=== PATIENT | female | born 1950 | race Caucasian/White ===

== ENCOUNTER 2018-12-24 16:39 | Observation (INO) ==
--- NOTE | 2018-12-24 18:02 | CT ---
EXAM DATE: 12/24/2018 6:00 PM EST AGE/SEX: 68 years / Female INDICATIONS: Cephalgia and altered mental status. CLINICAL DATA: This is the patient's initial encounter. Patient reports that signs and symptoms have been present for 1 week and indicates a pain score of 5/10. MEDICAL/SURGICAL HISTORY: Hypertension. Congestive heart failure. Rheumatoid arthritis. Neuropat hy. Coronary artery stent. Tonsillectomy. Heart cath. RADIATION DOSE: 34.69 CTDI (mGy) COMPARISON: No prior exams available for comparison. TECHNIQUE: CT of the head without contrast. Using automated exposure control and adjustment of the mA and/or kV according to patient size, radiation dose was kept as low as reasonably achievable to ob tain optimal diagnostic quality images. DICOM format image data is available electronically for revi ew and comparison. FINDINGS: Cerebrum: The ventricles are normal for age. No evidence of midline shift, mass lesion, hemorrhage or acute infarction. No extraaxial fluid collections are seen. Posterior Fossa: The cerebellum and brainstem are intact. The 4th ventricle is midline. The cerebe llopontine angle is unremarkable. Extracranial: The visualized portion of the orbits is intact. Skull: The calvaria is intact. No evidence of skull fracture. CONCLUSION: 1. No acute intracranial abnormality. . . Electronically signed by: Adi Linton MD Board Certified Radiologist 12/24/2018 6:00 PM EST
[2018-12-24 18:04] LABS: Baso # (Auto) 0.1 th/mm3 (0.0-0.2); Baso % (Auto) 1.4 % (0.0-2.0); Eos # (Auto) 0.1 th/mm3 (0.0-0.4); Eos % (Auto) 2.3 % (0.0-4.0); Hematocrit 38.2 % (35.0-46.0); Hemoglobin 12.8 gm/dL (11.6-15.3); Lymph # (Auto) 1.3 th/mm3 (1.0-4.8); Lymph % (Auto) 20.6 % (9.0-44.0); Mean Corpuscular HGB Conc 33.5 % (32.0-36.0); Mean Corpuscular Hemoglobin 31.5 pg (27.0-34.0); Mono # (Auto) 0.7 th/mm3 (0.0-0.9); Mono % (Auto) 10.9 % (0.0-8.0); Neut % (Auto) 64.8 % (16.0-70.0); Platelet Count 228 th/mm3 (150-450); Red Blood Count 4.06 mil/mm3 (4.00-5.30); Red Cell Distribution Width 15.1 % (11.6-17.2); White Blood Count 6.2 th/mm3 (4.0-11.0)
--- NOTE | 2018-12-24 18:21 | ED ---
HPI General Chief complaint: Headache Stated complaint: shortness of breath Time Seen by Provider: 12/24/18 17:39 Source: patient Mode of arrival: ambulatory Limitations: no limitations History of Present Illness HPI narrative: 68 y/o female presents with shortness of breath and chest pressure over the past couple weeks. She states that her sister told her she was having issues with her memory intermittently but she had not noticed it. She states she has history of heart attack and with that she had an atypical presentation where she was vomiting more. She states she has a heart stent. She states she is not having any current chest pain or other concurrent complaints. Onset (ago): week(s) Location: chest Radiation: non-radiation Pain Consistency: intermittent Relieving factors: none Exacerbating factors: movement Associated symptoms: Reports denies other symptoms Related Data Home Medications Medication Instructions Recorded Confirmed Detrol LA 12/24/18 Lasix 12/24/18 Os-Maldonado 500 + D3 12/24/18 folic acid 12/24/18 gabapentin 12/24/18 methotrexate PO WEEKLY 12/24/18 metoprolol tartrate DAILY 12/24/18 potassium 12/24/18 Allergies Allergy/AdvReac Type Severity Reaction Status Date / Time propoxyphene Allergy Nausea/Vomi Verified 12/24/18 16:50 [From Elizabeth-Oneyda] torsten Review of Systems ROS: all other systems reviewed are negative [facility] Medical History Medical History CHF (congestive heart failure) (Acute) Hyperlipidemia (Acute) Hypertension (Acute) Neuropathy (Acute) Rheumatoid arthritis (Acute) Surgical History Surgical History History of cardiac catheterization (Acute) History of heart artery stent (Acute) Hx of cataract surgery (Acute) Hx of tonsillectomy (Acute) Social History Social History Substance History: No History of Abuse Smoking Status: Never smoker How Often Do You Have a Drink Containing Alcohol: Never Recent Travel in [facility] within the Last 8 Weeks: No Recent Out of Country Travel within the Last 8 Weeks: No Immunization History Tetanus Immunization: <5 Years Exam Narrative Exam Narrative: GENERAL: 68 y/o female in no apparent distress SKIN: Focused skin assessment warm/dry. HEAD: Atraumatic. Normocephalic. EYES: Pupils equal and round. No scleral icterus. No injection or drainage. ENT: No nasal bleeding or discharge. Mucous membranes pink and moist. NECK: Trachea midline. No JVD. CARDIOVASCULAR: Regular rate and rhythm. No murmur appreciated. RESPIRATORY: No accessory muscle use. Clear to auscultation. Breath sounds equal bilaterally at apices. GASTROINTESTINAL: Abdomen soft, non-tender, nondistended. MUSCULOSKELETAL: No obvious deformities. No clubbing. No cyanosis. NEUROLOGICAL: Awake and alert. Motor grossly within normal limits. Normal speech. Course Initial Documented Vital Signs Temperature 98.3 F 12/24/18 16:42 Pulse Rate 95 H 12/24/18 16:42 Respiratory Rate 20 12/24/18 16:42 Blood Pressure 165/77 H 12/24/18 16:42 Pulse Oximetry 96 12/24/18 16:42 Last Documented Vital Signs Temperature 98.3 F 12/24/18 16:42 Pulse Rate 80 12/24/18 21:43 Respiratory Rate 18 12/24/18 21:43 Blood Pressure 152/65 H 12/24/18 21:43 Pulse Oximetry 95 12/24/18 21:43 Sign Out Sign Out Data: Patient Sign Out occurred on 12/24/18 at 19:01. Patient's care was discussed, and care was transferred from Vy Aguero MD to Kaylan De Leon DO. Sign Out Comment: please follow ua and admit Last updated by Vy Aguero MD at 12/24/18 18:51 Clinical Decision Support HEART Score Questions History: Moderately suspicious EKG: Non-specific repolarization disturbance Age: 65 years+ Risk Factors: 3 or more Risk Factors or Hx of Atherosclerotic Disease Initial Troponin: Normal Limit Heart Score HEART Score: 6 6 Medical Decision Making [facility] Narrative Medical decision making narrative: will check labs, imaging, ua and reeval Medical Screen Exam Complete: Yes Emergency Medical Condition: Yes Differential Diagnosis Differential Diagnosis: chf, renal failure, anemia, pneumonia, electrolyte deficiency, uti.... Lab Data Result diagrams: 12/24/18 17:40 12/24/18 17:40 Lab Results 12/24/18 12/24/18 12/24/18 Range/Units 17:40 17:40 17:40 WBC 6.2 (4.0-11.0) th/mm3 RBC 4.06 (4.00-5.30) mil/mm3 Hgb 12.8 (11.6-15.3) gm/dL Hct 38.2 (35.0-46.0) % MCV 94.0 (80.0-100.0) fL MCH 31.5 (27.0-34.0) pg MCHC 33.5 (32.0-36.0) % RDW 15.1 (11.6-17.2) % Plt Count 228 (150-450) th/mm3 MPV 10.0 (7.0-11.0) fL Neut % (Auto) 64.8 (16.0-70.0) % Lymph % (Auto) 20.6 (9.0-44.0) % [place] % (Auto) 10.9 H (0.0-8.0) % Eos % (Auto) 2.3 (0.0-4.0) % Baso % (Auto) 1.4 (0.0-2.0) % Neut # (Auto) 4.0 (1.8-7.7) th/mm3 Lymph # (Auto) 1.3 (1.0-4.8) th/mm3 [place] # (Auto) 0.7 (0.0-0.9) th/mm3 Eos # (Auto) 0.1 (0.0-0.4) th/mm3 Baso # (Auto) 0.1 (0.0-0.2) th/mm3 WBC Differential . Differential Comment Auto diff final Sodium 139 (136-145) meq/L Potassium 4.3 (3.5-5.1) meq/L Chloride 106 (98-107) meq/L Carbon Dioxide 26.6 (21.0-32.0) meq/L Anion Gap 6 (5-15) meq/L BUN 14 (7-18) mg/dL Creatinine 1.20 H (0.50-1.00) mg/dL Estimated GFR 45 L (>89) mL/min Random Glucose 95 (74-106) mg/dL Calcium 8.6 (8.5-10.1) mg/dL Magnesium 2.3 (1.5-2.5) mg/dL Total Bilirubin 0.3 (0.2-1.0) mg/dL AST 25 (15-37) U/L ALT 33 (10-53) U/L Alkaline Phosphatase 100 (45-117) U/L Total Creatine Kinase (26-192) U/L Troponin I Less than 0.02 L (0.02-0.05) ng/mL B-Natriuretic Peptide 181 H (0-100) pg/mL Total Protein 7.8 (6.4-8.2) g/dL Albumin 3.2 L (3.4-5.0) g/dL Urine Color (Yellw/Straw) Urine Clarity (Clear) Urine pH (5.0-8.5) Ur Specific [place] (1.002-1.035) Urine Protein (Neg-Trace) mg/dL Urine Glucose (UA) (Negative) mg/dL Urine Ketones (Negative) mg/dL Urine Occult Blood (Negative) Urine Nitrate (Negative) Urine Bilirubin (Negative) Urine Urobilinogen (Less than 2) mg/dL Ur Leukocyte Esterase (Negative) Urine RBC (0-3) /hpf Urine WBC (0-5) /hpf Ur Squamous Epith Cells (0-5) /hpf Urine Mucus (Occasional) /lpf Micro UA Comment Ur Microscopic Review Urine Culture Comments Serum Alcohol Less than 3 (0-5) mg/dL 12/24/18 12/24/18 12/24/18 Range/Units 17:40 20:30 20:56 WBC (4.0-11.0) th/mm3 RBC (4.00-5.30) mil/mm3 Hgb (11.6-15.3) gm/dL Hct (35.0-46.0) % MCV (80.0-100.0) fL MCH (27.0-34.0) pg MCHC (32.0-36.0) % RDW (11.6-17.2) % Plt Count (150-450) th/mm3 MPV (7.0-11.0) fL Neut % (Auto) (16.0-70.0) % Lymph % (Auto) (9.0-44.0) % [place] % (Auto) (0.0-8.0) % Eos % (Auto) (0.0-4.0) % Baso % (Auto) (0.0-2.0) % Neut # (Auto) (1.8-7.7) th/mm3 Lymph # (Auto) (1.0-4.8) th/mm3 [place] # (Auto) (0.0-0.9) th/mm3 Eos # (Auto) (0.0-0.4) th/mm3 Baso # (Auto) (0.0-0.2) th/mm3 WBC Differential Differential Comment Sodium (136-145) meq/L Potassium (3.5-5.1) meq/L Chloride (98-107) meq/L Carbon Dioxide (21.0-32.0) meq/L Anion Gap (5-15) meq/L BUN (7-18) mg/dL Creatinine (0.50-1.00) mg/dL Estimated GFR (>89) mL/min Random Glucose (74-106) mg/dL Calcium (8.5-10.1) mg/dL Magnesium (1.5-2.5) mg/dL Total Bilirubin (0.2-1.0) mg/dL AST (15-37) U/L ALT (10-53) U/L Alkaline Phosphatase (45-117) U/L Total Creatine Kinase 115 88 (26-192) U/L Troponin I Less than 0.02 L (0.02-0.05) ng/mL B-Natriuretic Peptide (0-100) pg/mL Total Protein (6.4-8.2) g/dL Albumin (3.4-5.0) g/dL Urine Color Yellow (Yellw/Straw) Urine Clarity Clear (Clear) Urine pH 6.0 (5.0-8.5) Ur Specific [place] 1.014 (1.002-1.035) Urine Protein Negative (Neg-Trace) mg/dL Urine Glucose (UA) Negative (Negative) mg/dL Urine Ketones Negative (Negative) mg/dL Urine Occult Blood Negative (Negative) Urine Nitrate Negative (Negative) Urine Bilirubin Negative (Negative) Urine Urobilinogen Less than 2 (Less than 2) mg/dL Ur Leukocyte Esterase Negative (Negative) Urine RBC Less than 1 (0-3) /hpf Urine WBC 1 (0-5) /hpf Ur Squamous Epith Cells <1 (0-5) /hpf Urine Mucus Few H (Occasional) /lpf Micro UA Comment Culture not ind Ur Microscopic Review Not Reportable Urine Culture Comments Culture not ind Serum Alcohol (0-5) mg/dL Imaging Data Radiologist's impression: Chest X-Ray 12/24/18 17:39 CONCLUSION: The lungs are clear. Head CT 12/24/18 17:39 CONCLUSION: 1. No acute intracranial abnormality. . . Discharge Plan Discharge Disposition Patient Disposition: Sign Out(ED Internal Use Only) Discharge Order Discharge Orders: ED Use Only Admit Order (Routine); Ordered 12/24/18 Ordered By: Kaylan De Leon Physicians Team ED Provider: Kaylan De Leon Primary Care Provider: UNKNOWN, Rxs /Orders / Referrals /Forms Prescriptions: No Action Detrol LA RF: 0 Lasix RF: 0 Os-Maldonado 500 + D3 RF: 0 folic acid RF: 0 gabapentin RF: 0 methotrexate PO WEEKLY RF: 0 metoprolol tartrate DAILY RF: 0 potassium RF: 0 Discharge Interventions Interventions: Vital Signs Last Done: 12/24/18 17:02 Status ED Status: Admitted Observation Patient
--- NOTE | 2018-12-24 18:25 | XR ---
EXAM DATE: 12/24/2018 6:14 PM EST AGE/SEX: 68 years / Female INDICATIONS: Short of breath CLINICAL DATA: This is the patient's initial encounter. Patient reports that signs and symptoms have been present for 1 day and indicates a pain score of 0/10. MEDICAL/SURGICAL HISTORY: Myocardial infarction. Coronary artery stent. COMPARISON: No prior exams available for comparison. FINDINGS: A single AP view of the chest demonstrates the lungs to be symmetrically aerated without evidence of mass, infiltrate or effusion. The cardiomediastinal contours are unremarkable. Osseous structures a re intact. CONCLUSION: The lungs are clear. Electronically signed by: Christiano Olson MD Board Certified Radiologist 12/24/2018 6:24 PM EST
[2018-12-24 18:33] LABS: Alanine Aminotransferase 33 U/L (10-53); Albumin 3.2 g/dL (3.4-5.0); Anion Gap 6 meq/L (5-15); Aspartate Aminotransferase 25 U/L (15-37); Blood Urea Nitrogen 14 mg/dL (7-18); Calcium 8.6 mg/dL (8.5-10.1); Carbon Dioxide 26.6 meq/L (21.0-32.0); Chloride 106 meq/L (98-107); Glomerular Filtration Rate 45 mL/min (>89); Glucose,Random 95 mg/dL (74-106); Magnesium 2.3 mg/dL (1.5-2.5); Potassium 4.3 meq/L (3.5-5.1); Sodium 139 meq/L (136-145)
[2018-12-24 18:38] LABS: Alkaline Phosphatase 100 U/L (45-117); Total Protein 7.8 g/dL (6.4-8.2)
[2018-12-24] MEDS ORDERED: Aspirin 325 MG Tablet PO ONE (18:41)
[2018-12-24] MEDS ORDERED: Acetaminophen 500 MG Tablet PO PRN (20:11)
[2018-12-24] MEDS ORDERED: Labetalol HCl Inj 100 MG/20 ML Vial IV.PUSH ONE (20:11)
[2018-12-24] MEDS ORDERED: Labetalol HCl Inj 20 MG/4 ML Vial IV.PUSH ONE (21:15)
--- NOTE | 2018-12-24 21:33 | ECG ---
Date Performed: 12/24/2018 Time Performed: 20:58:02 PTAGE: 68 years EKG: Sinus rhythm POSSIBLE RIGHT VENTRICULAR CONDUCTION DELAY POSSIBLE INFERIOR MYOCARDIAL INFARCTION BORDERLINE ECG NO PREVIOUS TRACING DOCTOR: Pardeep Swann Interpretating Date/Time 12/24/2018 21:32:12
[2018-12-24 21:47] LABS: Bilirubin,Urine Negative (Negative); Clarity,Urine Clear (Clear); Color,Urine Yellow (Yellw/Straw); Glucose,Urine (UA) Negative (Negative); Leukocyte Esterase,Urine Negative (Negative); Mucus,Urine Few /lpf (Occasional); Nitrite,Urine Negative (Negative); Specific Gravity,Urine 1.014 (1.002-1.035); Squamous Epithelial Cell,Urine <1 /hpf (0-5)
[2018-12-24 22:23] LABS: Creatine Kinase 88 U/L (26-192)
[2018-12-25 07:43] VITALS: BP 112/55; RESP 18; TEMP 98.6; O2SAT 96
[2018-12-25] MEDS ORDERED: Regadenoson Inj 0.4 MG/5 ML Syringe IV.PUSH ONE (08:16)
--- NOTE | 2018-12-25 08:20 | P.HPCA ---
History of Present Illness Primary Care Physician: UNKNOWN Chief Complaint: Chest pain History of Present Illness: This is a 68-year-old female history of CAD with stent in 2013, hypertension, hyperlipidemia, rheumatoid arthritis, neuropathy, and GERD presents to ED planes of headache chest pain shortness of breath. States that when she had an OH in 2013 her symptoms were headache and being tired. Concerned her stating that she was having a headache and shortness of breath of her first and was having chest discomfort that was not going away. Chest discomfort has been present for 4 days constantly. He was in the left upper chest. Was an 8 out of 10 at its worse level. Found nothing to worsen or improve it. Denied nausea or diaphoresis with the symptoms. Planes of a frontal headache that feels as if "like someone hit me in the head with a bat." That has been constant for 3 days. Denies any visual changes. Denies phonophobia. Denies numbness tingling weakness in extremities. Denies seizure activity or head injury. Shortness of breath has been intermittent for the past week. States is been going on with light activity at home which for the most part was light house chores. Denies coughing or wheezing. Denies recent illness. States her last cardiac evaluation was a couple years ago. She lives in [facility] for about 4 months and goes back to [place]. She has a local PCP and provided area. States the chest discomfort resolved on its own last evening while lying in the bed and the chest pain center. She no longer has a headache. Past medical history: Stated history of CAD with stent in 2013. Hypertension and hyperlipidemia. She also history of rheumatoid arthritis and states that because of neuropathy. Also history of GERD. Denies diabetes. Family history: Her brother had a CAD. Social history: She quit smoking 8 years ago prior to that she smoked about 1 pack daily for 25 years. - Diagnosis (1) Chest pain (2) CAD (coronary artery disease) (3) History of heart artery stent (4) Hypertension (5) Hyperlipidemia (6) Rheumatoid arthritis Review of Systems General: Patient denies fevers, chills, and recent travel. HEENT: Planes of frontal headache. Patient denies sore throat, difficulty swallowing. Cardiovascular: Has the chest discomfort as mentioned above. Denies sensation of heart beating rapidly or irregularly. No syncope. Denies diaphoresis. Respiratory: Planes of shortness of breath with light activity which her was light house chores. Denies inspirational chest discomfort. Denies coughing wheezing or hemoptysis. GI: Patient denies nausea, vomiting, diarrhea, abdominal pain, bloody stools. Musculoskeletal: Chronic joint pains. Patient denies joint edema. Denies calf pain or edema. Neurovascular: Patient denies numbness, tingling, weakness joint pain extremities. Denies headache. Endocrine: Denies polyuria and polydipsia. Hematologic: Denies easy bruising. Skin: Denies rash or itching. PMFSH - History History Provided By: Patient - Medical History Medical History: Medical History (Last Reviewed 12/24/18 @ 18:20 by Vy Aguero MD) CHF (congestive heart failure) Hyperlipidemia Hypertension Neuropathy Rheumatoid arthritis - Surgical History Surgical History: Surgical History (Last Reviewed 12/24/18 @ 18:20 by Vy Aguero MD) History of cardiac catheterization History of heart artery stent Hx of cataract surgery Hx of tonsillectomy - Tobacco History Second Hand Smoke Exposure: No Tobacco Use In Past 30 Days: No Smoking Status: Former smoker Tobacco Type: Cigarettes - Alcohol History How Often Do You Have a Drink Containing Alcohol: Never - Substance Use History Substance History: No History of Abuse - Travel History Recent Travel in the [place] Within the Last 8 Weeks: No Recent Travel Out of the Country Within the Last 8 Weeks: No - Immunization History Tetanus Immunization: <5 Years Medications and Allergies Active Medications: Active Medications Acetaminophen (Tylenol) 500 mg PO Q4H PRN PRN Reason: HEADACHE Aspirin (Aspirin) 325 mg PO DAILY [facility] Nitroglycerin (Nitrostat Sl) 0.4 mg SL Q5M PRN PRN Reason: CHEST PAIN Ondansetron HCl (Zofran Inj) 4 mg IV.PUSH Q6H PRN PRN Reason: NAUSEA Sodium Chloride (Ns Flush) 2 ml IV.FLUSH PRN PRN PRN Reason: FLUSH AFTER USING IV ACCESS Sodium Chloride (Ns Flush) 2 ml IV.FLUSH BID VISHAL Last Admin: 12/24/18 23:03 Dose: Not Given Sodium Chloride (Ns Flush) 2 ml IV.FLUSH PRN PRN PRN Reason: FLUSH AFTER USING IV ACCESS Allergies Allergy/AdvReac Type Severity Reaction Status Date / Time propoxyphene Allergy Nausea/Vomi Verified 12/24/18 16:50 [From Elizabeth-N] ting Home Medications Medication Instructions Recorded Confirmed Type Detrol LA 12/24/18 History Lasix 12/24/18 History Os-Maldonado 500 + D3 12/24/18 History folic acid 12/24/18 History gabapentin 12/24/18 History methotrexate PO WEEKLY 12/24/18 History metoprolol tartrate DAILY 12/24/18 History potassium 12/24/18 History Exam Vital signs: Vital Signs 12/24/18 16:42 12/24/18 17:02 12/24/18 21:43 Temperature 98.3 F Pulse Rate 95 H 89 80 Respiratory Rate 20 27 H 18 Blood Pressure 165/77 H 169/78 H 152/65 H Pulse Oximetry 96 96 95 12/25/18 00:21 12/25/18 04:00 12/25/18 07:41 Temperature 97.8 F 98.1 F 98.6 F Pulse Rate 87 80 79 Respiratory Rate 16 18 Blood Pressure 122/60 122/59 L 112/55 L Pulse Oximetry 96 94 L 96 Intake & Output 12/24/18 12/25/18 12/25/18 18:59 06:59 18:59 Intake Total 500 / 500 Balance 500 / 500 Weight 99.79 kg 99.79 kg Intake: Oral 500 / 500 Other: Date of Last Bowel Movement 12/24/18 Weight On Admission 99.79 kg Narrative: GENERAL: This is a well-nourished, well-developed patient, in no apparent distress. Patient speaks in clear complete sentences. Patient is pleasant. HEENT: Head is atraumatic and normocephalic. Neck is supple without lymphadenopathy and trachea is midline. No JVD or carotid bruits. CARDIOVASCULAR: Regular rate and rhythm without murmurs, gallops, or rubs. RESPIRATORY: Left upper chest wall is tender and she states that is the same area and same type of discomfort that she was having. Clear to auscultation. Breath sounds equal bilaterally. No wheezes, rales, or rhonchi. No use of accessory muscles. GASTROINTESTINAL: Abdomen is nontender, nondistended. Abdomen soft. No obvious pulsatile mass or bruit. No CVA tenderness. Strong femoral pulses bilaterally. Normal bowel sounds in all quadrants. MUSCULOSKELETAL: There are deformities to her toes bilaterally from rheumatoid arthritis. Patient is moving upper and lower extremities freely. No calf tenderness or edema, no Homans sign. Strong pulses in upper and lower extremities. NEUROLOGICAL: Patient is alert and oriented. Cranial nerves 2-12 are grossly intact. No focal deficits and speech is clear. SKIN: No rash and turgor is normal. Results 12/24/18 17:40 12/24/18 17:40 Cardiac Enzymes 12/24/18 12/24/18 12/24/18 Range/Units 17:40 17:40 20:56 AST 25 (15-37) U/L Troponin I Less than 0.02 L Less than 0.02 L (0.02-0.05) ng/mL B-Natriuretic Peptide 181 H (0-100) pg/mL 12/25/18 Range/Units 00:15 AST (15-37) U/L Troponin I Less than 0.02 L (0.02-0.05) ng/mL B-Natriuretic Peptide (0-100) pg/mL Coagulation 12/24/18 Range/Units 17:40 B-Natriuretic Peptide 181 H (0-100) pg/mL CBC 12/24/18 Range/Units 17:40 WBC 6.2 (4.0-11.0) th/mm3 RBC 4.06 (4.00-5.30) mil/mm3 Hgb 12.8 (11.6-15.3) gm/dL Hct 38.2 (35.0-46.0) % Plt Count 228 (150-450) th/mm3 Neut # (Auto) 4.0 (1.8-7.7) th/mm3 Lymph # (Auto) 1.3 (1.0-4.8) th/mm3 [place] # (Auto) 0.7 (0.0-0.9) th/mm3 Eos # (Auto) 0.1 (0.0-0.4) th/mm3 Baso # (Auto) 0.1 (0.0-0.2) th/mm3 Comprehensive Metabolic Panel 12/24/18 Range/Units 17:40 Sodium 139 (136-145) meq/L Potassium 4.3 (3.5-5.1) meq/L Chloride 106 (98-107) meq/L Carbon Dioxide 26.6 (21.0-32.0) meq/L BUN 14 (7-18) mg/dL Creatinine 1.20 H (0.50-1.00) mg/dL Calcium 8.6 (8.5-10.1) mg/dL AST 25 (15-37) U/L ALT 33 (10-53) U/L Alkaline Phosphatase 100 (45-117) U/L Total Protein 7.8 (6.4-8.2) g/dL Albumin 3.2 L (3.4-5.0) g/dL Intake and Output 12/24/18 12/25/18 12/25/18 22:59 06:59 14:59 Intake Total 500 / 500 Balance 500 / 500 Intake: Oral 500 / 500 Other: Date of Last Bowel Movement 12/24/18 Weight 99.79 kg 99.79 kg Weight On Admission 99.79 kg - Imaging and Cardiology Imaging: Impressions Chest X-Ray 12/24/18 17:39 CONCLUSION: The lungs are clear. Head CT 12/24/18 17:39 CONCLUSION: 1. No acute intracranial abnormality. . . EKG interpretations - EKG EKG shows: sinus rhythm (Sinus rhythm without significant ST segment depressions or elevations.) Caprini VTE Risk Assessment Caprini VTE Risk Assessment: Moderate/High Risk (score >= 2) Caprini Risk Assessment Model: Point Value = 1 Point Value = 2 Point Value = 3 Point Value = 5 Age 41-60 Minor surgery BMI > 25 kg/m2 Swollen legs Varicose veins or History of unexplained or recurrent spontaneous Oral contraceptives or hormone replacement Sepsis (< 1 month) Serious lung disease, including pneumonia (< 1 month) Abnormal pulmonary function Acute myocardial infarction Congestive heart failure (< 1 month) History of inflammatory bowel disease Medical patient at bed rest Age 61-74 Arthroscopic surgery Major open surgery (> 45 min) Laparoscopic surgery (> 45 min) Malignancy Confined to bed (> 72 hours) Immobilizing plaster cast Central venous access Age >= 75 History of VTE Family history of VTE Factor V Leiden Prothrombin [id number] Lupus anticoagulant Anticardiolipin antibodies Elevated serum homocysteine Heparin-induced thrombocytopenia Other congenital or acquired thrombophilia Stroke (< 1 month) Elective arthroplasty Hip, pelvis, or leg fracture Acute spinal cord injury (< 1 month) Prophylaxis Regimen: Total Risk Factor Score Risk Level Prophylaxis Regimen 0-1 Low Early ambulation 2 Moderate Order ONE of the following: *Sequential Compression Device (SCD) *Heparin 5000 units SQ BID 3-4 Higher Order ONE of the following medications: *Heparin 5000 units SQ TID *Enoxaparin/Lovenox 40 mg SQ daily (WT < 150 kg, CrCl > 30 mL/min) *Enoxaparin/Lovenox 30 mg SQ daily (WT < 150 kg, CrCl > 10-29 mL/min) *Enoxaparin/Lovenox 30 mg SQ BID (WT < 150 kg, CrCl > 30 mL/min) AND/OR *Sequential Compression Device (SCD) 5 or more Highest Order ONE of the following medications: *Heparin 5000 units SQ TID (Preferred with Epidurals) *Enoxaparin/Lovenox 40 mg SQ daily (WT < 150 kg, CrCl > 30 mL/min) *Enoxaparin/Lovenox 30 mg SQ daily (WT < 150 kg, CrCl > 10-29 mL/min) *Enoxaparin/Lovenox 30 mg SQ BID (WT < 150 kg, CrCl > 30 mL/min) AND *Sequential Compression Device (SCD) Assessment and Plan - Assessment (1) Chest pain Code(s): R07.9 - Chest pain, unspecified Status: Acute (2) CAD (coronary artery disease) Code(s): I25.10 - Atherosclerotic heart disease of [place] coronary artery without angina pectoris Status: Acute (3) History of heart artery stent Code(s): Z95.5 - Presence of coronary angioplasty implant and graft Status: Acute (4) Hypertension Code(s): I10 - Essential (primary) hypertension Status: Acute (5) Hyperlipidemia Code(s): E78.5 - Hyperlipidemia, unspecified Status: Acute (6) Rheumatoid arthritis Code(s): M06.9 - Rheumatoid arthritis, unspecified Status: Acute - Plan * Chest pain: Patient has had serial cardiac enzymes and EKGs for ruling out purposes and has also been seen by Dr. Mckinnon of cardiology and chest pain center. She will undergo a Lexiscan and would be discharged home if her stress test is nonischemic with instructions to follow-up with PCP. Return to ED for interval issues. * CAD: Patient has history of cardiac stent. CAD will be reassessed with stress test. She will need follow-up with cardiology. * Hypertension: Continue current medication. * Hyperlipidemia: Continue current medication. * Rheumatoid arthritis: Continue medication. Patient is stable at this time. She is agreeable to this plan. H&P: Quality - VTE Deep Vein Thrombosis/Pulmonary Embolism Present on Admission: No
--- NOTE | 2018-12-25 08:23 | P.PNCA ---
Subjective Interval history: This pleasant lady was seen in concert with the physician bread distributor, history and physical exam were obtained together. She has a very atypical history of presenting in 2012 with protracted vomiting and headache which was eventually diagnosed as an acute heart attack leading to a catheterization and stent placement. She has had no significant problems since but has not followed up with a wound specialist. She is a winter vacation here from [place] with no established follow-up. She currently presents with a headache and some mild shortness of breath but because of her previous issues she became anxious and concerned that she might be having a heart attack again and presented to the emergency room. History and physical was as documented by the physician bread distributor. Her current presentation is certainly not suggestive of an acute injury and her enzymes x3 are negative with unremarkable EKG for any changes. She does have mild elevation of her d-dimer. She is currently comfortable and desirous of returning to home. Medications and Allergies Active Medications: Active Medications Acetaminophen (Tylenol) 500 mg PO Q4H PRN PRN Reason: HEADACHE Aspirin (Aspirin) 325 mg PO DAILY VISHAL Nitroglycerin (Nitrostat Sl) 0.4 mg SL Q5M PRN PRN Reason: CHEST PAIN Ondansetron HCl (Zofran Inj) 4 mg IV.PUSH Q6H PRN PRN Reason: NAUSEA Sodium Chloride (Ns Flush) 2 ml IV.FLUSH PRN PRN PRN Reason: FLUSH AFTER USING IV ACCESS Sodium Chloride (Ns Flush) 2 ml IV.FLUSH BID [facility] Last Admin: 12/24/18 23:03 Dose: Not Given Sodium Chloride (Ns Flush) 2 ml IV.FLUSH PRN PRN PRN Reason: FLUSH AFTER USING IV ACCESS Allergies Allergy/AdvReac Type Severity Reaction Status Date / Time propoxyphene Allergy Nausea/Vomi Verified 12/24/18 16:50 [From [facility]] ting Home Medications Medication Instructions Recorded Confirmed Type Detrol LA 12/24/18 History Lasix 12/24/18 History Os-[place] 500 + D3 12/24/18 History folic acid 12/24/18 History gabapentin 12/24/18 History methotrexate PO WEEKLY 12/24/18 History metoprolol tartrate DAILY 12/24/18 History potassium 12/24/18 History Physical Exam Vital signs: Vital Signs 12/24/18 16:42 12/24/18 17:02 12/24/18 21:43 Temperature 98.3 F Pulse Rate 95 H 89 80 Respiratory Rate 20 27 H 18 Blood Pressure 165/77 H 169/78 H 152/65 H Pulse Oximetry 96 96 95 12/25/18 00:21 12/25/18 04:00 12/25/18 07:41 Temperature 97.8 F 98.1 F 98.6 F Pulse Rate 87 80 79 Respiratory Rate 16 18 Blood Pressure 122/60 122/59 L 112/55 L Pulse Oximetry 96 94 L 96 Intake & Output 12/24/18 12/25/18 12/25/18 18:59 06:59 18:59 Intake Total 500 / 500 Balance 500 / 500 Weight 99.79 kg 99.79 kg Intake: Oral 500 / 500 Other: Date of Last Bowel Movement 12/24/18 Weight On Admission 99.79 kg Narrative: Physical exam was carried out together with the physician bread distributor and is as recorded in his dictation. Pertinent C include Eyes PERRLA EOMI with bilateral Mouth upper plate in place lower teeth poor dentition Neck unremarkable Chest clear no rales wheezes or rhonchi but mildly tender over her anterior chest wall Cardiovascular regular sinus rhythm no gallop rub or murmur Extremities no clubbing cyanosis edema however fingernails are significantly deformed Patient's memory seems to be intact and when questioned if she feels she is having difficulty with her memory she states that she does not. (ED note indicates that her sister felt she had problems with her memory however the patient states she also feels the sister has problems with her memory) Results 12/24/18 17:40 12/24/18 17:40 Cardiac Enzymes 12/24/18 12/24/18 12/24/18 Range/Units 17:40 17:40 20:56 AST 25 (15-37) U/L Troponin I Less than 0.02 L Less than 0.02 L (0.02-0.05) ng/mL B-Natriuretic Peptide 181 H (0-100) pg/mL 12/25/18 Range/Units 00:15 AST (15-37) U/L Troponin I Less than 0.02 L (0.02-0.05) ng/mL B-Natriuretic Peptide (0-100) pg/mL Coagulation 12/24/18 Range/Units 17:40 B-Natriuretic Peptide 181 H (0-100) pg/mL CBC 12/24/18 Range/Units 17:40 WBC 6.2 (4.0-11.0) th/mm3 RBC 4.06 (4.00-5.30) mil/mm3 Hgb 12.8 (11.6-15.3) gm/dL Hct 38.2 (35.0-46.0) % Plt Count 228 (150-450) th/mm3 Neut # (Auto) 4.0 (1.8-7.7) th/mm3 Lymph # (Auto) 1.3 (1.0-4.8) th/mm3 [place] # (Auto) 0.7 (0.0-0.9) th/mm3 Eos # (Auto) 0.1 (0.0-0.4) th/mm3 Baso # (Auto) 0.1 (0.0-0.2) th/mm3 Comprehensive Metabolic Panel 12/24/18 Range/Units 17:40 Sodium 139 (136-145) meq/L Potassium 4.3 (3.5-5.1) meq/L Chloride 106 (98-107) meq/L Carbon Dioxide 26.6 (21.0-32.0) meq/L BUN 14 (7-18) mg/dL Creatinine 1.20 H (0.50-1.00) mg/dL Calcium 8.6 (8.5-10.1) mg/dL AST 25 (15-37) U/L ALT 33 (10-53) U/L Alkaline Phosphatase 100 (45-117) U/L Total Protein 7.8 (6.4-8.2) g/dL Albumin 3.2 L (3.4-5.0) g/dL Intake and Output 12/24/18 12/25/18 12/25/18 22:59 06:59 14:59 Intake Total 500 / 500 Balance 500 / 500 Intake: Oral 500 / 500 Other: Date of Last Bowel Movement 12/24/18 Weight 99.79 kg 99.79 kg Weight On Admission 99.79 kg - Imaging and Cardiology Imaging: Impressions Chest X-Ray 12/24/18 17:39 CONCLUSION: The lungs are clear. Head CT 12/24/18 17:39 CONCLUSION: 1. No acute intracranial abnormality. . . Assessment and Plan - Plan Patient is already ruled out and will be evaluated with a Lexiscan. If negative she will be discharged to further follow-up by establishing with a physician in this area. If positive she will be evaluated further.
--- NOTE | 2018-12-25 08:56 | ECG ---
Date Performed: 12/24/2018 Time Performed: 16:58:17 PTAGE: 68 years EKG: Baseline artifact present Sinus rhythm POSSIBLE LEFT ATRIAL ENLARGEMENT POSSIBLE RIGHT VENTRICULAR CONDUCTION DELAY POSSIBLE INFERIOR MYOC ARDIAL INFARCTION ABNORMAL ECG NO PREVIOUS TRACING DOCTOR: Pardeep Swann Interpretating Date/Time 12/25/2018 08:55:07
[2018-12-25] MEDS ORDERED: Aspirin 325 MG Tablet PO SCH (09:00)
[2018-12-25 09:24] VITALS: PULSE 83
--- NOTE | 2018-12-25 12:19 | NM ---
EXAM DATE: 12/25/2018 12:06 PM EST AGE/SEX: 68 years / Female INDICATIONS:Myocardial infarction. Angina Mid chest pain with shortness of breath for one day. CLINICAL DATA: This is the patient's initial encounter. Patient reports that signs and symptoms have been present for 1 day and indicates a pain score of 2/10. MEDICAL/SURGICAL HISTORY: Congestive heart failure. Hypertension. Cardiovascular disease. Cor onary artery stent. Tonsillectomy. COMPARISON: No prior exams available for comparison. No external comparison. DOSE: 8.8 mCi Tc 99m Myoview at rest 27.0 mCi [id number] at stress 0.4 mg Lexiscan STRESS SYMPTOMS: Shortness of breath. EJECTION FRACTION: 68 % TECHNIQUE: The patient underwent pharmacologic stress with infusion of prescribed dose. Continuous ECG tracing was monitored during stress. Gated SPECT imaging was performed after stress and conventi onal SPECT imaging was performed at rest. The examination was performed on a SPECT/CT scanner, both attenuation and non-corrected datasets were reviewed. FINDINGS: Distribution: The maximum perfused segment at stress is in the inferoseptal wall. Perfusion Study: The pattern of perfusion at stress is within normal limits. Gated Study: There are intact wall motion and wall thickening without hypokinetic or dyskinetic segm ents. The ejection fraction is calculated at 68%. RISK CATEGORY: Low (<1% Annual Mortality Rate) CONCLUSION: 1. Negative examination. Electronically signed by: Christiano Olson MD Board Certified Radiologist 12/25/2018 12:18 PM EST
--- NOTE | 2018-12-25 12:35 | TR ---
Date Performed: 12/25/2018 Time Performed: 11:14:49 DOCTOR: Gene Mckinnon DRUG LIST: CLINICAL HISTORY: ANGINA REASON FOR TEST: Angina REASON FOR ENDING: OBSERVATION: CONCLUSION: Lexiscan stress test was performed under standard four minute protocol. Radionuclide was injected one minute prior to ending the test. No electrocardiographic abormalities were present to suggest ischemia. Nuclear imaging and interpretation are pending. COMMENTS:
--- NOTE | 2018-12-25 12:51 | ECG ---
Date Performed: 12/25/2018 Time Performed: 00:40:04 PTAGE: 68 years EKG: Sinus rhythm POSSIBLE RIGHT VENTRICULAR CONDUCTION DELAY POSSIBLE INFERIOR MYOCARDIAL INFARCTION ABNORMAL ECG NO SIG CHANGES NO PREVIOUS TRACING DOCTOR: Gene Mckinnon Interpretating Date/Time 12/25/2018 12:49:40
== END 2018-12-25 14:17 | disposition home or self-care (01) ==
LOC: NEPC 16:39 → NEDA 16:39 → NEPFCDU 23:46
PROVIDERS: ADMIT Internal Medicine Interventional Cardiology; ATTEND Internal Medicine Interventional Cardiology
DX: Z79.899 Other long term (current) drug therapy; E78.5 Hyperlipidemia, unspecified; M06.9 Rheumatoid arthritis, unspecified; I25.2 Old myocardial infarction; I50.9 Heart failure, unspecified; Z95.5 Presence of coronary angioplasty implant and graft; R51 Headache; R07.89 Other chest pain; K21.9 Gastro-esophageal reflux disease without esophagitis; I25.10 Atherosclerotic heart disease of native coronary artery without angina pectoris; Z87.891 Personal history of nicotine dependence; G62.9 Polyneuropathy, unspecified; I11.0 Hypertensive heart disease with heart failure
CPT/HCPCS: 70450; 71010; 71045; 78452; 80053; 80307; 81001; 82550; 83520; 83735; 83880; 84484; 85025; 93005; 93017; 99285; A9502; G0378; J2785; Q9969